=== PATIENT | male | born 1965 | race Caucasian/White ===

== ENCOUNTER 2023-05-24 15:03 | Outpatient (REF) | payer BC, SELFPAY | END 2023-05-24 15:04 | disposition home or self-care (01) | LOC: HO.SH 15:03 | PROVIDERS: Visit Provider Internal Medicine | DX: Z01.118 Encounter for examination of ears and hearing with other abnormal findings (principal); H90.3 Sensorineural hearing loss, bilateral | CPT/HCPCS: 92557; 92700 ==

== ENCOUNTER 2024-05-09 09:05 | Outpatient (REF) | payer OTHER, SELFPAY ==
--- NOTE | ~2024-05-09 | XR_ITS ---
EXAMINATION: XR HIP, LEFT CLINICAL INFORMATION: Pain in left hip. COMPARISON: None available. TECHNIQUE: Two views of the left hip. FINDINGS: Degenerative changes in the imaged lower lumbar spine. Bilateral sacroiliac joints are maintained. Pubic symphysis is preserved. Pelvic calcifications are likely vascular. Two (2) rounded radiodensities may represent snaps. Single AP view of the right hip demonstrates mild degenerative changes with joint space narrowing and hypertrophic change. Left hip: Mild degenerative changes with superior joint space narrowing and hypertrophic change. Hypertrophic change along the left greater trochanter with amorphous calcifications in the adjacent soft tissues. Left hip alignment maintained. XR/XR hip LT min 2V IMPRESSION: 1. Mild degenerative changes in the left hip. 2. Hypertrophic change along the left greater trochanter with amorphous calcifications in the adjacent soft tissues. Additional imaging with CT scan or MRI should be considered if there is clinical concern for fracture or other underlying pathology.
== END 2024-05-09 09:06 | disposition home or self-care (01) ==
LOC: HO.HOSX 09:05
PROVIDERS: Visit Provider Orthopaedic Surgery
DX: M25.552 Pain in left hip (principal); M54.50 Low back pain, unspecified
CPT/HCPCS: 73502; 99202

== ENCOUNTER 2024-05-09 09:06 | Outpatient (AMB) | payer OTHER, SELFPAY ==
--- NOTE | 2024-05-09 09:13 | MHC.OFFVIS ---
Vital Signs 05/09/24 09:17 Height 5 ft 9 in Weight 235 lb BMI 34.7 Intake Visit Reasons: ENGLISH AND [employer]ING [employer]CTOR- LT Hip pain, Low back pain Intake Note: Tim is a 58 year old male who presents today as a new patient for pain along the posterior aspect of his left hip as well as low back pain which radiates into his left leg. The patient states that he did have back pain while in the between 1985 and 1995. He then injured his left hip while playing softball in 2003. Has taken Tylenol and Aleve which gave him only mild relief. The patient states that he is due to move to [place] in 2 days. . Allergies No Known Allergies Allergy (Verified 05/09/24 09:18) Physical Exam Vital Signs: BMI result Body Mass Index 34.7 Const Other: Well-nourished well-developed very friendly male awake alert and oriented x3 in no acute distress Back/Spine/Pelvis Other: Low back examination shows left-sided paraspinal muscle tenderness, pain with range of motion, positive straight leg raise test on the left at 70 degrees Extrem Other: Left hip examination shows full range of motion when compared to his right hip, no tenderness over his bursa, minimal discomfort with range of motion Results Reviewed Results Reviewed: X-rays of the patient's left hip show mild diffuse joint space narrowing, no acute bony abnormalities Assessment & Plan Assessment & Plan (1) Low Back Pain: Code(s): M54.50 - Low back pain, unspecified Plan Mr. Carroll presents with low back pain which radiates down his left leg most likely due to lumbar stenosis or a disc herniation. We will hold off on getting an MRI of his lumbar spine at this time because the patient is moving to [place] in 2 days. I did give him a prescription for a Medrol Dosepak to help with his pain during his move. I did recommend that he follow up with a neurosurgeon when he gets down to [place]. He will follow up with me on an as-needed basis. Feel free to call me at any time should questions regarding his orthopedic management arise. Thank you very much for asking me to see this very friendly gentleman. I spent 20 minutes in reviewing the patient's records and imaging studies, seeing the patient and documenting in the medical record. Orders: Orders XR hip LT min 2V Today M25.552 - Pain in left hip Medications: New methylprednisolone (Medrol (Jose David)) PO PER PKG DIR 21 ea 0RF Coding Level of Care Code New Pt Level 2 (64043) Diagnoses Low Back Pain M54.50
[2024-05-09 09:17] VITALS: BMI 34.7
== END 2024-05-09 09:35 | disposition home or self-care (01) ==
PROVIDERS: PCP Internal Medicine; Visit Provider Orthopaedic Surgery
DX: M54.50 Low back pain, unspecified (principal)
CPT/HCPCS: 99204